=== PATIENT | female | born 1980 | race African-American/Black ===

== ENCOUNTER 2019-08-17 09:50 | Outpatient (CLI) | payer OTHER, SELFPAY ==
--- NOTE | 2019-08-17 11:30 | NEURO_ITS ---
Patient Number: [id number] Impression: # Complains of left thumb numbness. # No Carpal Tunnel Syndrome. # Left ulnar neuropathy across the elbow. # Needle/EMG exam revealed neurogenic changes in pronator teres; Higher involvement needs to be ruled out. Nerve Conduction Studies Anti Sensory Summary Table Stim Site NR Peak (ms) P-T Amp (?V) Site1 Site2 Delta-P (ms) Dist (cm) Sebastien (m/s) Left Median Anti Sensory (2-3nd Digit) Wrist 3.2 83.3 Wrist 2-3nd Digit 3.2 14.0 44 Wrist 3.2 85.3 Wrist 2-3nd Digit 3.2 14.0 44 Left Radial Anti Sensory (Base 1st Digit) Wrist 2.0 19.0 Wrist Base 1st Digit 2.0 0.0 Left Ulnar Anti Sensory (5th Digit) Wrist 2.5 19.2 Wrist 5th Digit 2.5 14.0 56 Motor Summary Table Stim Site NR Onset (ms) O-P Amp (mV) Site1 Site2 Delta-0 (ms) Dist (cm) Sebastien (m/s) Left Median Motor (Abd Poll Brev) Wrist 3.0 8.5 Elbow Wrist 5.3 31.0 58 Elbow 8.3 3.2 Left Ulnar Motor (Abd Dig Minimi) Wrist 2.9 5.2 A Elbow Wrist 6.6 30.0 45 A Elbow 9.5 2.7 B Elbow Wrist 4.3 26.0 60 B Elbow 7.2 3.6 F Wave Studies NR F-Lat (ms) L-R F-Lat (ms) Left Median (Mrkrs) (Abd Poll Brev) 29.05 Left Ulnar (Mrkrs) (Abd Dig Min) 29.98 EMG Side Muscle Nerve Root Ins Act Fibs Amp Dur Recrt Comment Left 1stDorInt Ulnar C8-T1 Nml Nml Nml Nml Nml Left Ext Indicis Radial (Post Int) C7-8 Nml Nml Nml Nml Nml Left Ext Digitorum Radial (Post Int) C7-8 Nml Nml Nml Nml Nml Left BrachioRad Radial C5-6 Nml Nml Nml Nml Nml Left PronatorTeres Median C6-7 Nml Nml Nml >12ms Reduced Left Abd Poll Brev Median C8-T1 Nml Nml Nml Nml Nml Left ABD Dig Min Ulnar C8-T1 Nml Nml Nml Nml Nml MTDD
== END 2019-08-17 09:51 | disposition home or self-care (01) ==
PROVIDERS: PCP Family Medicine; Visit Provider Family Medicine
DX: R20.2 Paresthesia of skin (principal); G56.22 Lesion of ulnar nerve, left upper limb
CPT/HCPCS: 95886; 95909

== ENCOUNTER 2019-08-17 10:42 | Emergency (ER) | payer OTHER, SELFPAY ==
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
[2019-08-17 10:49] VITALS: BP 164/89; PULSE 71; RESP 16; TEMP 37.3; O2SAT 100
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
[2019-08-17 12:09] VITALS: BP 130/93; PULSE 64; RESP 18; O2SAT 99
== END 2019-08-17 12:11 | disposition home or self-care (01) ==
PROVIDERS: Emergency Provider Emergency Medicine; PCP Family Medicine
DX: S16.1XXA Strain of muscle, fascia and tendon at neck level, initial encounter (principal); S90.31XA Contusion of right foot, initial encounter; S70.01XA Contusion of right hip, initial encounter; S20.211A Contusion of right front wall of thorax, initial encounter; E66.9 Obesity, unspecified; Z68.34 Body mass index [BMI] 34.0-34.9, adult; V49.40XA Driver injured in collision with unspecified motor vehicles in traffic accident, initial encounter
CPT/HCPCS: 71046; 71100; 72125; 73630; 99284